=== PATIENT | male | born 1945 | race Hispanic/Latino ===

== ENCOUNTER 2016-11-19 14:41 | Inpatient (IN) | payer MEDICARE, OTHER ==
--- NOTE | 2016-11-19 15:07 | C.PDOC ---
History Of Present Illness 71 y/o male presents to ED requesting detox from alcohol. Patient reports last drink yesterday at 11:00 PM. Denies any other physical complaints at this time. Time Seen by Provider: 11/19/16 15:07 Chief Complaint (Nursing): Substance Abuse History Per: Patient History/Exam Limitations: no limitations Onset/Duration Of Symptoms: Persistent Current Symptoms Are (Timing): Still Present Modifying Factor(s): Alcohol Associated Symptoms: denies: Agitation, Depression, Suicidal Thoughts, Suicidal Plan Recent travel outside of the [place]: No Past Medical History Reviewed: Historical Data, Nursing Documentation, Vital Signs Vital Signs: Last Vital Signs Temp 98.6 F 11/19/16 17:07 Pulse 63 11/19/16 17:07 Resp 18 11/19/16 17:07 BP 138/87 11/19/16 17:07 Pulse Ox 97 11/19/16 17:07 Family History: States: Unknown Family Hx Review Of Systems Constitutional: Negative for: Fever, Chills Cardiovascular: Negative for: Chest Pain, Palpitations Respiratory: Negative for: Cough, Shortness of Breath Gastrointestinal: Negative for: Vomiting Skin: Negative for: Rash Psych: Negative for: Withdrawal Physical Exam - Physical Exam Appears: Non-toxic, No Acute Distress Skin: Warm, Dry Head: Atraumatic, Normacephalic Chest: Symmetrical Cardiovascular: Rhythm Regular Respiratory: No Rales, No Rhonchi, No Wheezing Gastrointestinal/Abdominal: Soft, No Tenderness Extremity: Normal ROM Neurological/Psych: Oriented x3, Normal Speech ED Course And Treatment - Laboratory Results Result Diagrams: 11/19/16 15:42 11/19/16 15:42 O2 Sat by Pulse Oximetry: 99 (RA) Pulse Ox Interpretation: Normal Progress Note: Treated with clonidine, Librium. Labs ordered. Crisis eval in ER. Disposition Discussed With : Twyla Monroe Comment: accepted the pt onhis service and took over the care at 6:20 PM Counseled Patient/Family Regarding: Studies Performed, Diagnosis - Disposition Disposition: HOSPITALIZED Disposition Time: 15:07 Condition: FAIR Forms: [facility] (Serbian) - Clinical Impression Clinical Impression: Alcohol abuse - Scribe Statement The provider has reviewed the documentation as recorded by the Scribe SM All medical record entries made by the Scribe were at my direction and personally dictated by me. I have reviewed the chart and agree that the record accurately reflects my personal performance of the history, physical exam, medical decision making, and the department course for this patient. I have also personally directed, reviewed, and agree with the discharge instructions and disposition. Decision To Admit - Pt Status Changed To: Hospital Disposition Of: Inpatient - Admit Certification Admit to Inpatient:: After my assessment, the patient will require hospitalization for at least two midnights. This is because of the severity of symptoms shown, intensity of services needed, and/or the medical risk in this patient being treated as an outpatient. - InPatient: Physician Admission Certification: I certify that this patient requires 2 or more midnights of care for the following reason:: After my assessment, the patient will require hospitalization for at least two midnights. This is because of the severity of symptoms shown, intensity of services needed, and/or the medical risk in this patient being treated as an outpatient. - . Bed Request Type: Detox Admitting Physician: Twyla Monroe Patient Diagnosis: Alcohol abuse
[2016-11-19 15:47] LABS: BASO # 0.1 K/uL (0.0-0.2); BASO % 0.8 % (0.0-2.0); EOS # 0.1 K/uL (0.0-0.7); EOS % 0.7 % (0.0-4.0); HEMATOCRIT 39.2 % (35.0-51.0); LYMPH # 1.1 K/uL (1.0-4.3); LYMPH % 14.3 % (20.0-40.0); MEAN CELL VOLUME 100.6 fL (80.0-94.0); MEAN CORPUSCULAR HEMOGLOBIN 35.4 pg (27.0-31.0); MEAN CORPUSCULAR HGB CONC 35.2 g/dL (33.0-37.0); MEAN PLATELET VOLUME 8.3 fL (7.2-11.7); MONO # 0.6 K/uL (0.0-0.8); MONO % 8.1 % (0.0-10.0); RED CELL DISTRIBUTION WIDTH 14.4 % (11.5-14.5); WHITE BLOOD COUNT 7.5 K/uL (4.8-10.8)
[2016-11-19 15:59] LABS: CHLORIDE 91 mmol/L (98-107)
[2016-11-19 16:00] LABS: POTASSIUM 3.8 mmol/L (3.6-5.2)
[2016-11-19 16:02] LABS: CARBON DIOXIDE 24 mmol/L (22-30); GFR AFRICAN-AMERICAN > 60
[2016-11-19 16:03] LABS: ALB/GLOB RATIO 1.2 (1.0-2.1); ALKALINE PHOSPHATASE 122 U/L (38-126); ALT/SGPT 31 U/L (21-72); AST/SGOT 36 U/L (17-59); BILIRUBIN,TOTAL 1.7 mg/dL (0.2-1.3); BLOOD UREA NITROGEN 17 mg/dL (9-20); CALCIUM 8.8 mg/dl (8.6-10.4); GLUCOSE,RANDOM 97 mg/dL (75-110); TOTAL PROTEIN 7.7 g/dL (6.3-8.3)
[2016-11-19 16:04] LABS: ALCOHOL SERUM < 10 mg/dl (0-10)
[2016-11-19 16:13] LABS: SODIUM 130 mmol/L (132-148)
[2016-11-19 17:10] LABS: RBC URINE 1 /hpf (0-3); URINE BILIRUBIN NEGATIVE (NEGATIVE); URINE BLOOD NEGATIVE (NEGATIVE); URINE COLOR Amber (YELLOW); URINE GLUCOSE (UA) NORMAL (Normal); URINE KETONE 2+ mg/dL (NEGATIVE); URINE LEUKOCYTE ESTERASE NEG Leu/uL (Negative); URINE PROTEIN 1+ mg/dL (NEGATIVE); WBC URINE 1 /hpf (0-5)
--- NOTE | 2016-11-19 19:00 | PCM.BM ---
<Bebe Bartlett - Last Filed: 11/19/16 18:59> Treatment Plan Problems - Problems identified on initial assessmt Potential for alcohol withdrawal Date Initiated: 11/19/16 Time Initiated: 18:59 Assessment reference: NA Status: Active Treatment assets and liabiliti Patient Assests: cooperative, negotiates basic needs Patient Liabilities: substance abuse, medical problems (ETOH) - Milieu Protocol Maintain good personal hygiene: daily Encourage regular showers, daily Remind patient to perform daily oral care, daily Assist patient to perform ADL's Conduct patient checks and document Observation sheet: Q15 minutes Maintain personal safety: every shift Educate patient to report safety concerns to staff, every shift Monitor environment for contraband/sharps Medication safety: Monitor for expected outcome, potential side effects: every shift, Assess barriers to learning: every shift, Assess readiness for medication education: every shift <Celeste Restrepo - Last Filed: 11/20/16 14:45> Family Contact Family involvement: Famliy/SO not involved Family contact: Patient agrees to contact, Telephone contact initiated by staff - Goals for Treatment Patient goals for treatment: Complete detox and transition to AA meetings. Discharge/Continuing Care - Education Needs Education Needs: Patient Medication, Patient Diagnosis/Disease Process, Patient Coping Skills, Patient Anger Management skills, Patient Placement options, Patient Community resources - Discharge Discharge Criteria: Ability to care for self, No longer exhibiting s/s of withdrawal, Reduction of target symptoms Discharge to:: With Family - Treatment Team Participation Patient/Family/SO Statement: 11/20/16 14:46 "I just wanna go to AA meetings..." Discussed with Family/SO: No Was Patient/Family/SO present at Treatment Team Meeting: Yes <Twyla Monroe - Last Filed: 11/21/16 10:59> - Diagnosis (1) Alcohol use disorder, severe, dependence Status: Acute Interventions: 11/21/16 10:59 * Assess 7x/week regarding severity of withdrawal * Educate regarding risks, benefits, side effects and alternatives of medications * Use Motivational Interviewing for abstinence * Use CBT for relapse prevention * Medication management for withdrawal symptoms * Encourage medication assisted treatment *
[2016-11-20] MEDS: Multiple Vitamins Tab PO SCH (09:51)
[2016-11-20] MEDS: Metoprolol Succinate 25 mg XL Tab PO SCH (09:51)
[2016-11-20 11:12] LABS: CHLORIDE 92 mmol/L (98-107); POTASSIUM 3.7 mmol/L (3.6-5.2); SODIUM 131 mmol/L (132-148)
[2016-11-20 11:14] LABS: BILIRUBIN,TOTAL 1.3 mg/dL (0.2-1.3); CARBON DIOXIDE 29 mmol/L (22-30); GFR AFRICAN-AMERICAN > 60
[2016-11-20 11:15] LABS: ALKALINE PHOSPHATASE 99 U/L (38-126); ALT/SGPT 35 U/L (21-72); AST/SGOT 27 U/L (17-59); BLOOD UREA NITROGEN 19 mg/dL (9-20); CALCIUM 8.8 mg/dl (8.6-10.4); GLUCOSE,RANDOM 172 mg/dL (75-110); MAGNESIUM 1.1 mg/dL (1.6-2.3); TOTAL PROTEIN 7.1 g/dL (6.3-8.3)
--- NOTE | 2016-11-20 14:31 | PCM.PSYCH ---
Initial Psychiatric Evaluation - Initial Psychiatric Evaluation Type of Admission: Voluntary Legal Status: Capacity Chief Complaint (in patient's own words): "Alcohol" History of Present Illness and Precipitating Events: A 71 year old white male presents today for alcohol withdrawal and detox. Pt admits to drinking for the past 10 years after his 2nd 's . He admits to drinking heavily 7-8 years ago. Pt drinks a pint of vodka daily. Denies any withdrawal symptoms currently or in the past. Pt denies using drugs currently or in the past. Pt denies smoking currently or in the past. Denies any suicidal or homicidal ideation and any auditory or visual hallucinations. Pt lives with a friend, twice, twice, has no children and retired. Denies going to any detox or rehab programs in the past. Denies any legal issues currently or in the past. PMH: CVA 2012, HTN, DM, denies any psychiatric illness Allergies: denies Meds: Norvasc, Eliquis, Zetia, Metformin Family Hx: Denies any medical or psychiatric issues. Denies any substance abuse. Current Medications: Active Medications Generic Name Dose Route Start Last Admin Trade Name Freq PRN Reason Stop Dose Admin Amlodipine Besylate 10 mg 11/20/16 10:00 11/20/16 09:51 Norvasc PO 10 mg DAILY MARY BETH Administration Apixaban 5 mg 11/20/16 10:00 11/20/16 09:51 Eliquis PO 5 mg BID MARY BETH Administration Chlordiazepoxide 25 mg 11/20/16 00:00 11/20/16 13:24 Librium PO 11/23/16 23:59 25 mg Q6H MARY BETH Administration Taper Chlordiazepoxide 25 mg 11/19/16 20:23 11/19/16 20:31 Librium PO 25 mg Q4H PRN Administration Alcohol Withdrawal Chlorthalidone 25 mg 11/20/16 10:00 11/20/16 09:51 [place] PO 25 mg DAILY MARY BETH Administration Ezetimibe 10 mg 11/19/16 23:00 11/19/16 23:40 Zetia PO 10 mg HS MARY BETH Administration Famotidine 20 mg 11/20/16 10:00 11/20/16 09:51 Pepcid PO 20 mg BID MARY BETH Administration Folic Acid 1 mg 11/20/16 10:00 11/20/16 09:51 Folic Acid PO 1 mg DAILY MARY BETH Administration Hydroxyzine HCl 25 mg 11/19/16 22:55 Atarax PO Q6H PRN Anxiety Ibuprofen 400 mg 11/19/16 22:55 Motrin Tab PO Q6H PRN Pain, moderate (4-7) Loperamide HCl 2 mg 11/19/16 20:13 Imodium PO QID PRN Loose stools Metformin HCl 500 mg 11/20/16 10:00 11/20/16 09:51 Glucophage PO 500 mg BID MARY BETH Administration Metoprolol Succinate 25 mg 11/20/16 10:00 11/20/16 09:51 Toprol Xl PO 25 mg DAILY MARY BETH Administration Montelukast Sodium 10 mg 11/20/16 22:00 Singulair PO HS [facility] Multivitamins 1 tab 11/20/16 10:00 11/20/16 09:51 Hexavitamin PO 1 tab DAILY MARY BETH Administration Thiamine HCl 100 mg 11/20/16 10:00 11/20/16 09:51 Vitamin B1 Tab PO 100 mg DAILY MARY BETH Administration Trazodone HCl 50 mg 11/19/16 22:55 Desyrel PO HS PRN Insomnia Past Psychiatric History - Past Psychiatric History Pertinent Medical Hx (Current Medical&Sleep Prob, Allergies): Allergies Allergy/AdvReac Type Severity Reaction Status Date / Time No Known Allergies Allergy Verified 11/19/16 14:45 Apixaban [Eliquis] 5 mg PO BID 11/19/16 Chlorthalidone [Hygroton] 25 mg PO DAILY 11/19/16 Cholecalciferol [Vitamin D] 1,000 unit PO DAILY 11/19/16 Ezetimibe [Zetia] 10 mg PO HS 11/19/16 Famotidine [Pepcid] 40 mg PO BID 11/19/16 Folic Acid 1 mg PO DAILY 11/19/16 Levocetirizine Dihydrochloride [Levocetirizine Dihydrochloride] 5 mg PO DAILY Metformin HCl [Glucophage] 500 mg PO BID 11/19/16 Metoprolol Succinate [Toprol XL] 25 mg PO DAILY 11/19/16 Montelukast Sodium [Singulair] 10 mg PO DAILY 11/19/16 [place]-3 Fatty Acids/Fish Oil [Fish Oil 1,000 mg Capsule] 1,000 mg PO DAILY 11/19 Sertraline HCl 50 mg PO DAILY 11/19/16 Ubidecarenone [Coenzyme Q10] 100 mg PO DAILY 11/19/16 Valsartan [Diovan] 320 mg PO DAILY 11/19/16 amLODIPine [Norvasc] 10 mg PO DAILY 11/19/16 traZODone [trazODONE HYDROCHLORIDE] 50 mg PO HS 11/19/16 Review of Systems - Neurological Neurological: Abnormal Gait - Psychiatric Psychiatric: Depression. absent: Abnormal Sleep Pattern, Anhedonia, Change in Appetite, Confusion, Difficulty Concentrating, Hallucinations, Homicidal Ideation, Mood Swings, Suicidal Ideation, Visual Hallucinations Mental Status Examination - Personal Presentation Personal Presentation: Looks stated age, Impairment in gait - Affect Affect: Constricted - Reliability in Providing Information Reliability in Providing Information: Fair - Speech Speech: Organized - Mood Mood: Depressed - Formal Thought Process Formal Thought Process: No Impairment - Obsessions/Compulsions Obsessions: No Compulsions: No - Cognitive Functions Orientation: Person, Place, Situation, Time Sensorium: Lethargic Attention/Concentration: Attentive Abstract Thinking: Bradley Estimate of Intelligence: Average Judgement: Intact, as evidence by: Insight regarding need for hospitalization Memory: Recent intact, as evidence by: Ability to recall events of the day, Remote intact, as evidenced by: Ability to recall historical events - Risk Risk: Withdrawal DSM 5 DX - DSM 5 DSM 5 Diagnosis: Alcohol Use disorder - severe Alcohol withdrawal - Recommended/Plan of Treatment Treatment Recommendations and Plan of Treatment: Librium Taper As needed medications Gabapentin for augmentation Attend groups and activities Supportive therapy and psychoeducation [place] for abstinence CBT for relapse prevention Encourage MAT Refer to rehab or IOP Attend self-help groups as well Recommend Pt to talk with Digital Marketing Lead to find locations for AA meetings after discharge 33 min Projected ELOS: 4-5 days Prognosis: good - Smoking Cessation Smoking Cessation Initiated: No
--- NOTE | 2016-11-21 00:28 | CP.PCM.PN ---
Subjective - Date & Time of Evaluation Date of Evaluation: 11/21/16 Time of Evaluation: 00:29 - Subjective Subjective: CODE STAR Patient was found near bedside on left knee. Patient usually ambulates with cane. He was attempting to go to the bathroom when his left leg "gave out on him " and he fell onto that left knee. Denied head trauma, LOC, syncope, dizziness. Patient was assisted into wheelchair, where he was examined. Left knee, below patella had a 1cm bleeding abrasion. Wound was cleaned with NS, bacitracin applied, wound wrapped. Patient if for left knee xray in the morning. Bel DELAROSA, PGY1 Objective - Vital Signs/Intake and Output Vital Signs (last 24 hours): Temp Pulse Resp BP Pulse Ox 97.8 F 88 20 108/68 100 11/20/16 20:54 11/20/16 20:54 11/20/16 20:54 11/20/16 20:54 11/20/16 20:54 - Medications Medications: Current Medications Amlodipine Besylate (Norvasc) 10 mg PO DAILY [facility] Last Admin: 11/20/16 09:51 Dose: 10 mg Apixaban (Eliquis) 5 mg PO BID [facility] Last Admin: 11/20/16 18:32 Dose: 5 mg Bacitracin (Bacitracin) 1 ea TOP TID [facility] Chlordiazepoxide (Librium) 25 mg PO Q8H [facility] PRN Reason: Taper Stop: 11/23/16 23:59 Last Admin: 11/20/16 18:32 Dose: 25 mg Chlordiazepoxide (Librium) 25 mg PO Q4H PRN PRN Reason: Alcohol Withdrawal Last Admin: 11/19/16 20:31 Dose: 25 mg Chlorthalidone (Hygroton) 25 mg PO DAILY [facility] Last Admin: 11/20/16 09:51 Dose: 25 mg Ezetimibe (Zetia) 10 mg PO HS [facility] Last Admin: 11/20/16 21:10 Dose: 10 mg Famotidine (Pepcid) 20 mg PO BID [facility] Last Admin: 11/20/16 18:48 Dose: 20 mg Folic Acid (Folic Acid) 1 mg PO DAILY [facility] Last Admin: 11/20/16 09:51 Dose: 1 mg Hydroxyzine HCl (Atarax) 25 mg PO Q6H PRN PRN Reason: Anxiety Ibuprofen (Motrin Tab) 400 mg PO Q6H PRN PRN Reason: Pain, moderate (4-7) Loperamide HCl (Imodium) 2 mg PO QID PRN PRN Reason: Loose stools Metformin HCl (Glucophage) 500 mg PO BID [facility] Last Admin: 11/20/16 18:32 Dose: 500 mg Metoprolol Succinate (Toprol Xl) 25 mg PO DAILY [facility] Last Admin: 11/20/16 09:51 Dose: 25 mg Montelukast Sodium (Singulair) 10 mg PO HS [facility] Last Admin: 11/20/16 21:10 Dose: 10 mg Multivitamins (Hexavitamin) 1 tab PO DAILY [facility] Last Admin: 11/20/16 09:51 Dose: 1 tab Thiamine HCl (Vitamin B1 Tab) 100 mg PO DAILY [facility] Last Admin: 11/20/16 09:51 Dose: 100 mg Trazodone HCl (Desyrel) 50 mg PO HS PRN PRN Reason: Insomnia - Labs Labs: 11/19/16 15:42 11/20/16 10:53
[2016-11-21] MEDS: Bacitracin 500 Units/gm Oint Foilpak UD TOP SCH ×5 (00:32→20:02)
[2016-11-21] MEDS: Multiple Vitamins Tab PO SCH (09:24)
[2016-11-21] MEDS: Metoprolol Succinate 25 mg XL Tab PO SCH (09:26)
--- NOTE | 2016-11-21 15:11 | PCM.PYCHPN ---
Psychiatric Progress Note - Psychiatric Progress Note Patient seen today, length of contact: 15 minutes Patient Chief Complaint: I'm feeling better. I fell down last night. Problems Identified/Issues Discussed: Patient seen. Chart reviewed. Case discussed with the staff. Issues related to illness and treatment were discussed with the patient. Reported compliant with treatment with no adverse affects. Tolerating treatment very well. Patient fell down last night and got injury on his left knee. Patient was evaluated by medicine. Patient denied any head trauma or loss of consciousness. Patient was sent for left knee x-ray. X-ray appeared normal. At the time of evaluation, patient was awake alert oriented 3, no delusions, no auditory or visual hallucinations, no suicidal ideations or homicidal ideations. Medical Problems: Hypertension Diabetes mellitus Diagnostic Results: Review DSM 5 Symptoms Update: Improvement with treatment Medication Change: No Medical Record Reviewed: Yes Mental Status Examination - Cognitive Function Orientation: Person, Place, Situation, Time Memory: Intact Attention: WNL Concentration: WNL Association: WNL Fund of Knowledge: [facility] Decription of patient's judgement and insights: Fair - Mood Mood: Depressed - Affect Affect: Other (Appropriate) - Speech Speech: Appropriate - Formal Thought Process Formal Thought Process: No Impairment - Suicidal Ideation Suicidal Ideation: No - Homicidal Ideation Homicidal Ideation: No Goal/Treatment Plan - Goal/Treatment Plan Need for Continued Stay: Remain at risks for inpatient hospitalization, Discharge may exacerbated symptoms, Severe functional impairment Progress Toward Problem(s) and Goals/Treatment Plan: Patient education Supportive therapy Continue treatment as before Avoid unnecessary movement. Estimated Date of D/C: 11/25/16 - Smoking Cessation Smoking Cessation Initiated: No
--- NOTE | 2016-11-21 19:12 | RAD ---
PROCEDURE: Left Knee Radiographs. HISTORY: Pain. COMPARISON: None. FINDINGS: BONES: No evidence of acute fracture or destructive bony lesion. JOINTS: Mild osteoarthritic changes. JOINT EFFUSION: None. OTHER FINDINGS: Diffuse vascular calcification. IMPRESSION: No evidence of acute fracture or dislocation. Vascular calcification.
[2016-11-22] MEDS: Multiple Vitamins Tab PO SCH (09:40)
[2016-11-22] MEDS: Metoprolol Succinate 25 mg XL Tab PO SCH (09:40)
[2016-11-22] MEDS: Bacitracin 500 Units/gm Oint Foilpak UD TOP SCH ×3 (09:41→18:14)
--- NOTE | 2016-11-22 16:05 | PCM.PYCHPN ---
Psychiatric Progress Note - Psychiatric Progress Note Patient seen today, length of contact: 15 minutes Patient Chief Complaint: I'm feeling better. Problems Identified/Issues Discussed: Patient seen. Chart reviewed. Case discussed with the staff. Issues related to illness and treatment were discussed with the patient. Reported compliant with treatment with no adverse affects. Tolerating treatment very well. Patient reported feeling better, very mild pain in his left knee. At the time of evaluation, patient was awake alert oriented 3, no delusions, no auditory or visual hallucinations, no suicidal ideations or homicidal ideations. Medical Problems: Hypertension Diabetes mellitus Diagnostic Results: Review DSM 5 Symptoms Update: Improving with treatment Medication Change: No Medical Record Reviewed: Yes Mental Status Examination - Cognitive Function Orientation: Person, Place, Situation, Time Memory: Intact Attention: WNL Concentration: WNL Association: WNL Fund of Knowledge: [facility] Decription of patient's judgement and insights: Fair - Mood Mood: Depressed (Less than before) - Affect Affect: Other (Appropriate) - Speech Speech: Appropriate - Formal Thought Process Formal Thought Process: No Impairment - Suicidal Ideation Suicidal Ideation: No - Homicidal Ideation Homicidal Ideation: No Goal/Treatment Plan - Goal/Treatment Plan Need for Continued Stay: Remain at risks for inpatient hospitalization, Discharge may exacerbated symptoms, Severe functional impairment Progress Toward Problem(s) and Goals/Treatment Plan: Patient education Supportive therapy Continue treatment as before Avoid unnecessary movement. Estimated Date of D/C: 11/25/16 - Smoking Cessation Smoking Cessation Initiated: No
[2016-11-23] MEDS ORDERED: Ergocalciferol 50,000 Intl Units Cap PO SCH (08:45)
[2016-11-23] MEDS: Multiple Vitamins Tab PO SCH (09:54)
[2016-11-23] MEDS: Metoprolol Succinate 25 mg XL Tab PO SCH (09:58)
[2016-11-23] MEDS: Bacitracin 500 Units/gm Oint Foilpak UD TOP SCH ×3 (10:07→18:27)
[2016-11-23 11:43] LABS: CHLORIDE 94 mmol/L (98-107)
[2016-11-23 11:44] LABS: POTASSIUM 3.7 mmol/L (3.6-5.2); SODIUM 130 mmol/L (132-148)
[2016-11-23 11:46] LABS: CARBON DIOXIDE 25 mmol/L (22-30); GFR AFRICAN-AMERICAN > 60
[2016-11-23 11:47] LABS: ALB/GLOB RATIO 1.1 (1.0-2.1); ALKALINE PHOSPHATASE 104 U/L (38-126); ALT/SGPT 26 U/L (21-72); AST/SGOT 31 U/L (17-59); BILIRUBIN,TOTAL 0.9 mg/dL (0.2-1.3); BLOOD UREA NITROGEN 27 mg/dL (9-20); CALCIUM 8.9 mg/dl (8.6-10.4); GLUCOSE,RANDOM 177 mg/dL (75-110); TOTAL PROTEIN 7.1 g/dL (6.3-8.3)
--- NOTE | 2016-11-23 12:48 | PCM.PYCHPN ---
Psychiatric Progress Note - Psychiatric Progress Note Patient seen today, length of contact: 18 min Patient Chief Complaint: "I feel better actually" Problems Identified/Issues Discussed: He is seen, chart reviewed and case discussed Med consult is requested due to pt's electrolyte imbalances, help appreciated He is not discharged as he is started on low dose naltrexone as well as med consult and ongoing but decreasing wdw symptoms Will get 2 more doses to finish his detox AOx3, cooperative, wants to go home tomorrow, refusing rehab He may need help/assistance at home as he is unsteady and has some ADL issues ( likely exacerbated by detox by benzos) Support given, IL used Medication Change: Yes (detox adjusted) Medical Record Reviewed: Yes Mental Status Examination - Cognitive Function Orientation: Person, Place, Situation, Time Memory: Intact Attention: WNL Concentration: Poor Association: WNL Fund of Knowledge: WNL - Mood Mood: Depressed (Less than before) - Affect Affect: Broad - Speech Speech: Appropriate - Formal Thought Process Formal Thought Process: No Impairment - Suicidal Ideation Suicidal Ideation: No - Homicidal Ideation Homicidal Ideation: No Goal/Treatment Plan - Goal/Treatment Plan Need for Continued Stay: Remain at risks for inpatient hospitalization, Discharge may exacerbated symptoms, Severe functional impairment Progress Toward Problem(s) and Goals/Treatment Plan: Librium Taper adjusted As needed medications Gabapentin dc'ed Attend groups and activities Supportive therapy and psychoeducation [place] for abstinence CBT for relapse prevention Encourage MAT Refer to rehab or IOP Attend self-help groups as well Estimated Date of D/C: 11/24/16
[2016-11-23 13:02] LABS: MAGNESIUM 1.1 mg/dL (1.6-2.3)
--- NOTE | 2016-11-23 14:46 | CP.PCM.CON ---
<Nelsy Staples - Last Filed: 11/23/16 15:22> History of Present Illness - History of Present Illness History of Present Illness: Medicine Consult Note CC: medicine consult for hyponatremia HPI: 71M with PMHx of CVA 2011, HTN, DM who is admitted on 7T Detox for for alcohol withdrawal and detox. Patient had a Code Star, Wednesday night while trying to ambulate to the bathroom, he fell onto his left knee. Xrays performed no fracture, wound was cleaned and wrapped. Medicine team consulted by psychiatry for hyponatremia. Denied fever, chills, headache, chest pain, SOB, polyphagia, abdominal pain, n/v/d/c, or urinary symptoms. PMHx: CVA 2011, HTN, DM PSHx: Denied Meds: As per APR, reviewed and confirmed All: NKDA SHx: Admits to 1 pint of vodka daily x 10 years, denied tobacco or illicit drug use FHx: Unremarkable Past Patient History - Past Medical History & Family History Past Medical History?: Yes - Past Social History Smoking Status: Never Smoked - CARDIAC Hx Cardiac Disorders: No Hx Hypertension: Yes - PULMONARY Hx Tuberculosis: No - NEUROLOGICAL HX Cerebrovascular Accident: Yes (2011) - HEENT Hx Cataracts: Yes - ENDOCRINE/METABOLIC Hx Diabetes Mellitus Type 2: Yes - HEMATOLOGICAL/ONCOLOGICAL Hx Cancer: No Hx Human Immunodeficiency Virus (HIV): No - MUSCULOSKELETAL/RHEUMATOLOGICAL Hx Falls: Yes (last one was a week ago ,) - GENITOURINARY/GYNECOLOGICAL Hx Sexually Transmitted Disorders: No - PSYCHIATRIC Hx Substance Use: No - SURGICAL HISTORY Hx Cataract Extraction: Yes Other/Comment: colonoscopy, endoscopy - ANESTHESIA Hx Anesthesia: Yes Hx Anesthesia Reactions: No Meds Allergies/Adverse Reactions: Allergies Allergy/AdvReac Type Severity Reaction Status Date / Time No Known Allergies Allergy Verified 11/19/16 14:45 - Medications Medications: Current Medications Acetaminophen (Tylenol 325mg Tab) 650 mg PO Q6 PRN PRN Reason: Pain, Mild (1-3) Amlodipine Besylate (Norvasc) 10 mg PO DAILY [facility] Last Admin: 11/23/16 09:58 Dose: 10 mg Apixaban (Eliquis) 5 mg PO BID [facility] Last Admin: 11/23/16 10:23 Dose: 5 mg Bacitracin (Bacitracin) 1 ea TOP TID [facility] Last Admin: 11/23/16 10:07 Dose: 1 ea Chlordiazepoxide (Librium) 25 mg PO Q24H MARY BETH PRN Reason: Taper Stop: 11/23/16 23:59 Last Admin: 11/22/16 23:46 Dose: 25 mg Chlordiazepoxide (Librium) 25 mg PO Q4H PRN PRN Reason: Alcohol Withdrawal Last Admin: 11/19/16 20:31 Dose: 25 mg Chlordiazepoxide (Librium) 25 mg PO ONCE ONE Stop: 11/24/16 09:01 Chlorthalidone (Hygroton) 25 mg PO DAILY [facility] Last Admin: 11/23/16 09:58 Dose: 25 mg Ezetimibe (Zetia) 10 mg PO HS [facility] Last Admin: 11/22/16 22:05 Dose: 10 mg Ergocalciferol (Drisdol 50,000 Intl Units Cap) 1 cap PO Q7D [facility] Stop: 03/08/17 08:46 Last Admin: 11/23/16 10:38 Dose: 1 cap Famotidine (Pepcid) 20 mg PO BID [facility] Last Admin: 11/23/16 09:56 Dose: 20 mg Folic Acid (Folic Acid) 1 mg PO DAILY [facility] Last Admin: 11/23/16 09:55 Dose: 1 mg Hydroxyzine HCl (Atarax) 25 mg PO Q6H PRN PRN Reason: Anxiety Ibuprofen (Motrin Tab) 400 mg PO Q6H PRN PRN Reason: Pain, moderate (4-7) Loperamide HCl (Imodium) 2 mg PO QID PRN PRN Reason: Loose stools Magnesium Oxide (Mag-Ox) 400 mg PO TID [facility] Stop: 11/24/16 18:01 Metformin HCl (Glucophage) 500 mg PO BID [facility] Last Admin: 11/23/16 09:55 Dose: 500 mg Metoprolol Succinate (Toprol Xl) 25 mg PO DAILY [facility] Last Admin: 11/23/16 09:58 Dose: 25 mg Montelukast Sodium (Singulair) 10 mg PO HS [facility] Last Admin: 11/22/16 22:05 Dose: 10 mg Multivitamins (Hexavitamin) 1 tab PO DAILY [facility] Last Admin: 11/23/16 09:54 Dose: 1 tab Naltrexone HCl (Revia) 25 mg PO DAILY [facility] Thiamine HCl (Vitamin B1 Tab) 100 mg PO DAILY [facility] Last Admin: 11/23/16 09:56 Dose: 100 mg Trazodone HCl (Desyrel) 50 mg PO HS PRN PRN Reason: Insomnia Physical Exam - Constitutional Appears: No Acute Distress - Head Exam Head Exam: NORMAL INSPECTION, NORMOCEPHALIC - Eye Exam Eye Exam: EOMI, Normal appearance, PERRL Pupil Exam: NORMAL ACCOMODATION - ENT Exam ENT Exam: Mucous Membranes Moist, Normal Exam - Neck Exam Neck exam: Positive for: Normal Inspection - Respiratory Exam Respiratory Exam: Clear to Auscultation Bilateral, NORMAL BREATHING PATTERN. absent: Decreased Breath Sounds, Wheezes - Cardiovascular Exam Cardiovascular Exam: REGULAR RHYTHM, RRR, +S1, +S2 - GI/Abdominal Exam GI & Abdominal Exam: Normal Bowel Sounds, Soft. absent: Distended, Tenderness - Extremities Exam Extremities exam: Positive for: normal inspection, pedal pulses present. Negative for: pedal edema, tenderness Additional comments: left knee bandage C/D/I - Neurological Exam Neurological exam: Alert, CN II-XII Intact, Oriented x3 - Psychiatric Exam Psychiatric exam: Normal Affect, Normal Mood - Skin Skin Exam: Dry, Intact, Normal Color, Warm Results - Vital Signs Recent Vital Signs: Last Vital Signs Temp 98.2 F 11/23/16 13:38 Pulse 76 11/23/16 13:38 Resp 18 11/23/16 13:38 BP 100/70 11/23/16 13:38 Pulse Ox 98 11/23/16 13:38 - Labs Result Diagrams: 11/19/16 15:42 11/23/16 11:02 Labs: Laboratory Results - last 24 hr 11/23/16 11:02 Sodium 130 L Potassium 3.7 Chloride 94 L Carbon Dioxide 25 Anion Gap 15 BUN 27 H Creatinine 1.3 Est GFR ( Amer) > 60 Est GFR (Non-Af Amer) 55 Random Glucose 177 H Calcium 8.9 Magnesium 1.1 L Total Bilirubin 0.9 AST 31 ALT 26 Alkaline Phosphatase 104 Total Protein 7.1 Albumin 3.8 Globulin 3.3 Albumin/Globulin Ratio 1.1 Assessment & Plan - Assessment and Plan (Free Text) Plan: Hyponatremia * Most likely 2/2 chronic alcohol use, poor food intake * Continue to monitor Hx of HTN * Resume home medications: Norvasc 5mg PO daily, Cholorathalidone 25mg PO daily , Metoprolol 25mg PO daily HX of DM * Resume home medications: Metformin 500mg PO BID Hx of HLD * Resume home medications: Zetia 10mg PO QHS Hx CVA * Resume home medications: Eliquis 5mg PO BID Alcohol withdrawal * CIWA * Librium taper * Management as per primary team, psych Patient has unsteady gait, will speak to case management for a rolling walker. DW Dr. Varela, Bel DELAROSA, PGY-1 <Taurn Varela - Last Filed: 11/23/16 18:14> Meds - Medications Medications: Current Medications Acetaminophen (Tylenol 325mg Tab) 650 mg PO Q6 PRN PRN Reason: Pain, Mild (1-3) Amlodipine Besylate (Norvasc) 10 mg PO DAILY [facility] Last Admin: 11/23/16 09:58 Dose: 10 mg Apixaban (Eliquis) 5 mg PO BID [facility] Last Admin: 11/23/16 10:23 Dose: 5 mg Bacitracin (Bacitracin) 1 ea TOP TID [facility] Last Admin: 11/23/16 16:02 Dose: 1 ea Chlordiazepoxide (Librium) 25 mg PO Q24H MARY BETH PRN Reason: Taper Stop: 11/23/16 23:59 Last Admin: 11/22/16 23:46 Dose: 25 mg Chlordiazepoxide (Librium) 25 mg PO Q4H PRN PRN Reason: Alcohol Withdrawal Last Admin: 11/19/16 20:31 Dose: 25 mg Chlordiazepoxide (Librium) 25 mg PO ONCE ONE Stop: 11/24/16 09:01 Chlorthalidone (Hygroton) 25 mg PO DAILY [facility] Last Admin: 11/23/16 09:58 Dose: 25 mg Ezetimibe (Zetia) 10 mg PO HS [facility] Last Admin: 11/22/16 22:05 Dose: 10 mg Ergocalciferol (Drisdol 50,000 Intl Units Cap) 1 cap PO Q7D [facility] Stop: 03/08/17 08:46 Last Admin: 11/23/16 10:38 Dose: 1 cap Famotidine (Pepcid) 20 mg PO BID [facility] Last Admin: 11/23/16 09:56 Dose: 20 mg Folic Acid (Folic Acid) 1 mg PO DAILY [facility] Last Admin: 11/23/16 09:55 Dose: 1 mg Hydroxyzine HCl (Atarax) 25 mg PO Q6H PRN PRN Reason: Anxiety Ibuprofen (Motrin Tab) 400 mg PO Q6H PRN PRN Reason: Pain, moderate (4-7) Loperamide HCl (Imodium) 2 mg PO QID PRN PRN Reason: Loose stools Magnesium Oxide (Mag-Ox) 400 mg PO TID [facility] Stop: 11/24/16 18:01 Metformin HCl (Glucophage) 500 mg PO BID [facility] Last Admin: 11/23/16 09:55 Dose: 500 mg Metoprolol Succinate (Toprol Xl) 25 mg PO DAILY [facility] Last Admin: 11/23/16 09:58 Dose: 25 mg Montelukast Sodium (Singulair) 10 mg PO HS [facility] Last Admin: 11/22/16 22:05 Dose: 10 mg Multivitamins (Hexavitamin) 1 tab PO DAILY [facility] Last Admin: 11/23/16 09:54 Dose: 1 tab Naltrexone HCl (Revia) 25 mg PO DAILY [facility] Last Admin: 11/23/16 16:03 Dose: 25 mg Thiamine HCl (Vitamin B1 Tab) 100 mg PO DAILY [facility] Last Admin: 11/23/16 09:56 Dose: 100 mg Trazodone HCl (Desyrel) 50 mg PO HS PRN PRN Reason: Insomnia Results - Vital Signs Recent Vital Signs: Last Vital Signs Temp 98.2 F 11/23/16 16:29 Pulse 66 11/23/16 16:29 Resp 18 11/23/16 16:29 BP 108/68 11/23/16 16:29 Pulse Ox 96 11/23/16 16:29 - Labs Result Diagrams: 11/19/16 15:42 11/23/16 11:02 Labs: Laboratory Results - last 24 hr 11/20/16 11/21/16 11/23/16 08:28 07:44 11:02 Sodium 130 L Potassium 3.7 Chloride 94 L Carbon Dioxide 25 Anion Gap 15 BUN 27 H Creatinine 1.3 Est GFR ( Amer) > 60 Est GFR (Non-Af Amer) 55 POC Glucose (mg/dL) 113 H 121 H Random Glucose 177 H Calcium 8.9 Magnesium 1.1 L Total Bilirubin 0.9 AST 31 ALT 26 Alkaline Phosphatase 104 Total Protein 7.1 Albumin 3.8 Globulin 3.3 Albumin/Globulin Ratio 1.1 Attending/Attestation - Attestation I have personally seen and examined this patient.: Yes I have fully participated in the care of the patient.: Yes I have reviewed all pertinent clinical information: Yes Notes (Text): 11/23/16 18:13 Medical attending: Patient was seen and examined by me, agree with the above note by medical record specialist. Patient has a history of a lot of alcoholism we were consulate with regards to the patient's hyponatremia as well as weakness. We emphasized to him that he's got to eat more food as opposed to drink alcohol as this would help increase his serum sodium. He is not under any acute distress when we saw him. Thank you very much, Tarun Varela
[2016-11-23] MEDS: Naltrexone 25 MG TAB PO SCH (16:03)
[2016-11-23] MEDS: Magnesium Oxide 400 mg Tab UD PO SCH (18:27)
--- NOTE | 2016-11-24 07:00 | CP.PCM.PN ---
<Nelsy Staples - Last Filed: 11/24/16 09:04> Subjective - Date & Time of Evaluation Date of Evaluation: 11/24/16 Time of Evaluation: 07:00 - Subjective Subjective: Medicine Consult Note Patient was seen and examined at bedside. Rolling walker adjusted and at patient 's bedside. Patient reports he feels well. Discussed with patient the importance of cutting back the alcohol intake and increasing his PO intake of food. Patient reports he understands and agrees. Denied fever, chills, headache , chest pain, SOB, polyphagia, abdominal pain, n/v/d/c, or urinary symptoms. Objective - Vital Signs/Intake and Output Vital Signs (last 24 hours): Temp Pulse Resp BP Pulse Ox 97.6 F 63 18 121/68 99 11/24/16 06:46 11/24/16 06:46 11/24/16 06:46 11/24/16 06:46 11/24/16 06:46 - Medications Medications: Current Medications Acetaminophen (Tylenol 325mg Tab) 650 mg PO Q6 PRN PRN Reason: Pain, Mild (1-3) Amlodipine Besylate (Norvasc) 10 mg PO DAILY [facility] Last Admin: 11/23/16 09:58 Dose: 10 mg Apixaban (Eliquis) 5 mg PO BID [facility] Last Admin: 11/23/16 18:26 Dose: 5 mg Bacitracin (Bacitracin) 1 ea TOP TID [facility] Last Admin: 11/23/16 18:27 Dose: 1 ea Chlordiazepoxide (Librium) 25 mg PO Q4H PRN PRN Reason: Alcohol Withdrawal Last Admin: 11/19/16 20:31 Dose: 25 mg Chlordiazepoxide (Librium) 25 mg PO ONCE ONE Stop: 11/24/16 09:01 Chlorthalidone (Hygroton) 25 mg PO DAILY [facility] Last Admin: 11/23/16 09:58 Dose: 25 mg Ezetimibe (Zetia) 10 mg PO HS [facility] Last Admin: 11/23/16 22:16 Dose: 10 mg Ergocalciferol (Drisdol 50,000 Intl Units Cap) 1 cap PO Q7D [facility] Stop: 03/08/17 08:46 Last Admin: 11/23/16 10:38 Dose: 1 cap Famotidine (Pepcid) 20 mg PO BID [facility] Last Admin: 11/23/16 18:27 Dose: 20 mg Folic Acid (Folic Acid) 1 mg PO DAILY [facility] Last Admin: 11/23/16 09:55 Dose: 1 mg Hydroxyzine HCl (Atarax) 25 mg PO Q6H PRN PRN Reason: Anxiety Ibuprofen (Motrin Tab) 400 mg PO Q6H PRN PRN Reason: Pain, moderate (4-7) Loperamide HCl (Imodium) 2 mg PO QID PRN PRN Reason: Loose stools Magnesium Oxide (Mag-Ox) 400 mg PO TID [facility] Stop: 11/24/16 18:01 Last Admin: 11/23/16 18:27 Dose: 400 mg Metformin HCl (Glucophage) 500 mg PO BID [facility] Last Admin: 11/23/16 18:27 Dose: 500 mg Metoprolol Succinate (Toprol Xl) 25 mg PO DAILY [facility] Last Admin: 11/23/16 09:58 Dose: 25 mg Montelukast Sodium (Singulair) 10 mg PO HS [facility] Last Admin: 11/23/16 22:16 Dose: 10 mg Multivitamins (Hexavitamin) 1 tab PO DAILY [facility] Last Admin: 11/23/16 09:54 Dose: 1 tab Naltrexone HCl (Revia) 25 mg PO DAILY [facility] Last Admin: 11/23/16 16:03 Dose: 25 mg Thiamine HCl (Vitamin B1 Tab) 100 mg PO DAILY [facility] Last Admin: 11/23/16 09:56 Dose: 100 mg Trazodone HCl (Desyrel) 50 mg PO HS PRN PRN Reason: Insomnia - Labs Labs: 11/19/16 15:42 11/23/16 11:02 - Additional Findings Additional findings: - Head Exam Head Exam: NORMAL INSPECTION, NORMOCEPHALIC - Eye Exam Eye Exam: EOMI, Normal appearance, PERRL Pupil Exam: NORMAL ACCOMODATION - ENT Exam ENT Exam: Mucous Membranes Moist, Normal Exam - Neck Exam Neck exam: Positive for: Normal Inspection - Respiratory Exam Respiratory Exam: Clear to Auscultation Bilateral, NORMAL BREATHING PATTERN. absent: Decreased Breath Sounds, Wheezes - Cardiovascular Exam Cardiovascular Exam: REGULAR RHYTHM, RRR, +S1, +S2 - GI/Abdominal Exam GI & Abdominal Exam: Normal Bowel Sounds, Soft. absent: Distended, Tenderness - Extremities Exam Extremities exam: Positive for: normal inspection, pedal pulses present. Negative for: pedal edema, tenderness Additional comments: left knee bandage C/D/I - Neurological Exam Neurological exam: Alert, CN II-XII Intact, Oriented x3 - Psychiatric Exam Psychiatric exam: Normal Affect, Normal Mood - Skin Skin Exam: Dry, Intact, Normal Color, Warm Assessment and Plan - Assessment and Plan (Free Text) Plan: Hyponatremia * Most likely 2/2 chronic alcohol use, poor oral intake * Discussed with patient the importance of alcohol cessation and increasing PO intake. Patient states he understands and agrees with plan. * He is to follow up with his PMD within 1-2 weeks. Hx of HTN * Resume home medications: Norvasc 5mg PO daily, Cholorathalidone 25mg PO daily , Metoprolol 25mg PO daily HX of DM * Resume home medications: Metformin 500mg PO BID Hx of HLD * Resume home medications: Zetia 10mg PO QHS Hx CVA * Resume home medications: Eliquis 5mg PO BID Alcohol withdrawal * CIWA * Librium taper * Management as per primary team, psych Patient has unsteady gait, he has an adjusted rolling walker at bedside. Medicine Team will be signing off this patient. Thank you for the consult. Reconsult if necessary. DW Dr. Varela, Bel DELAROSA, PGY-1 <Tarun Varela - Last Filed: 11/25/16 07:21> Objective - Vital Signs/Intake and Output Vital Signs (last 24 hours): Temp Pulse Resp BP Pulse Ox 97.9 F 73 18 95/65 L 97 11/24/16 13:47 11/24/16 13:47 11/24/16 13:47 11/24/16 13:47 11/24/16 13:47 - Labs Labs: 11/19/16 15:42 11/23/16 11:02 Attending/Attestation - Attestation I have personally seen and examined this patient.: Yes I have fully participated in the care of the patient.: Yes I have reviewed all pertinent clinical information, including history, physical exam and plan: Yes Notes (Text): Medical consult: Patient was seen and examined by me, agree with the above note by medical billing manager. As emphasizing the resident note, the patient needs to increase his by mouth intake particularly eating food as opposed to drinking alcohol. This will help substantially with hyponatremia that he initially had. Very likely hyponatremia secondary to poor solute concentration as well as poor nutrition Again we encouraged to the patient that he needs to decrease his alcohol intake thank you Tarun Varela
--- NOTE | 2016-11-24 08:48 | PCM.PYCHDC ---
Mental Status Examination - Mental Status Examination Orientation: Person, Place, Situation, Time Memory: Impaired Mood: Anxious Affect: Constricted Speech: Slurred Attention: Poor Concentration: Poor Association: WNL Fund of Knowledge: WNL Formal Thought Process: No Impairment Suicidal Ideation: No Current Homicidal Ideation?: No Discharge Summary - Discharge Note Reason for Hospitalization: Alcohol detox Laboratory Data: Abnormal Lab Results 11/20/16 11/21/16 11/23/16 08:28 07:44 11:02 Sodium 130 L Potassium 3.7 Chloride 94 L Carbon Dioxide 25 Anion Gap 15 BUN 27 H Creatinine 1.3 Est GFR ( Amer) > 60 Est GFR (Non-Af Amer) 55 POC Glucose (mg/dL) 113 H 121 H Random Glucose 177 H Calcium 8.9 Magnesium 1.1 L Total Bilirubin 0.9 AST 31 ALT 26 Alkaline Phosphatase 104 Total Protein 7.1 Albumin 3.8 Globulin 3.3 Albumin/Globulin Ratio 1.1 11/24/16 07:59 Sodium Potassium Chloride Carbon Dioxide Anion Gap BUN Creatinine Est GFR ( Amer) Est GFR (Non-Af Amer) POC Glucose (mg/dL) 107 Random Glucose Calcium Magnesium Total Bilirubin AST ALT Alkaline Phosphatase Total Protein Albumin Globulin Albumin/Globulin Ratio Consultations:: List each consultation separately and include: 1. Reason for request. 2. Findings. 3. Follow-up Consultations: PT and medicine Summary of Hospital Course include:: 1. Description of specific treatment plan utilized for patients during their course of treatmen. 2. Summarize the time- course for resolution of acute symptoms and/or regressed behaviors. 3. Describe issues identified and worked on during hospitalization. 4. Describe medication utilized. 5. Describe medical problems identified and treated. 6. Reassessment of suicide risk Summary of Hospital Course: Th ept is seen twice today, chart reviewed and case discussed. His niece Holli and friend Hima are contacted. On admission: A 71 year old white male presents today for alcohol withdrawal and detox. Pt admits to drinking for the past 10 years after his 2nd 's . He admits to drinking heavily 7-8 years ago. Pt drinks a pint of vodka daily. Denies any withdrawal symptoms currently or in the past. Pt denies using drugs currently or in the past. Pt denies smoking currently or in the past. Denies any suicidal or homicidal ideation and any auditory or visual hallucinations. Pt lives with a friend, twice, twice, has no children and retired. Denies going to any detox or rehab programs in the past. Denies any legal issues currently or in the past. PMH: CVA 2012, HTN, DM, denies any psychiatric illness Allergies: denies Meds: Norvasc, Eliquis, Zetia, Metformin Family Hx: Denies any medical or psychiatric issues. Denies any substance abuse. Hospital course: The pt was admitted and started on treatment with psychotherapy, support, psychoeducation and medications. [place] and CBT used. The pt attended groups and activities, as well as milieu therapy. All the risks and benefits of medications are discussed and the patient understood and agreed. The pt improved with the treatments provided. After care discussed with the patient. He refused referrals saying he is weak. He will consider IOP and attend AA He asked for a "medication to stop thinking about alcohol" and naltrexone started - afetr risks discussed. he will f/u with PCP including necessary lab work PT saw him Medicine saw him Help appreciated They cleared him but he has to use a walker and continue PT at home and see his PCP and an urologist (flomax started - pt has BPH sxs and incontinence at times) - Final Diagnosis (DSM 5) Condition upon Discharge: IMPROVED DSM 5: Alcohol Use disorder - severe Alcohol withdrawal Disposition: HOME/ ROUTINE Follow-up Treatment Plan: Continue below medications after discharge. All meds are called into [facility] pharmacy in [place], [place] A walker is given to the pt Holli Agustin, will take him to his PCP this week re home PT, blood work and potential care home placement vs. getting an home health aide. She is contacted by the blurb writer an she agreed with the plan. Follow after care plan as discussed: AA but consider IOP Use relapse prevention skills Return to ER or call 911 if suicidal, homicidal or symptoms relapse. Stay away from stress, alcohol and drugs. Prescriptions/Medication Reconciliation: Ergocalciferol [Drisdol 50,000 Intl Units Cap] 1 cap PO Q7D #12 cap Magnesium Oxide [Mag-Ox] 400 mg PO BID #60 tab Multivitamins [Hexavitamin] 1 tab PO DAILY #30 tab Naltrexone [Revia] 50 mg PO DAILY #30 tab Tamsulosin [Flomax] 0.4 mg PO DAILY #30 cap traZODone [Desyrel] 50 mg PO HS PRN #30 tab PRN Reason: Insomnia - Smoking Cessation Smoking Cessation Medication prescribed: No - Antipsychotic Medications Pt discharged on 2 or more routine antipsychotic medications: No
[2016-11-24 10:06] VITALS: PULSE 73
[2016-11-24] MEDS: Multiple Vitamins Tab PO SCH (10:18)
[2016-11-24] MEDS: Magnesium Oxide 400 mg Tab UD PO SCH (10:18)
[2016-11-24] MEDS: Bacitracin 500 Units/gm Oint Foilpak UD TOP SCH (10:19)
[2016-11-24] MEDS: Naltrexone 25 MG TAB PO SCH (10:20)
[2016-11-24] MEDS: Metoprolol Succinate 25 mg XL Tab PO SCH (10:33)
[2016-11-24 13:48] VITALS: BP 95/65; RESP 18; TEMP 97.9; O2SAT 97
== END 2016-11-24 15:49 | disposition home or self-care (01) | DRG 897 ==
LOC: C.ER 14:41 → C.7D 18:23
PROVIDERS: ADMIT Psychiatry & Neurology Psychiatry; ATTEND Psychiatry & Neurology Psychiatry
PROC: HZ2ZZZZ Detoxification Services for Substance Abuse Treatment (ICD-10-PCS; principal; 2016-11-19)
DX: F10.239 Alcohol dependence with withdrawal, unspecified (principal); E11.9 Type 2 diabetes mellitus without complications; F32.89 Other specified depressive episodes; E87.1 Hypo-osmolality and hyponatremia; I10 Essential (primary) hypertension; N40.0 Benign prostatic hyperplasia without lower urinary tract symptoms; R32 Unspecified urinary incontinence; Z86.73 Personal history of transient ischemic attack (TIA), and cerebral infarction without residual deficits